=== PATIENT | male | born 1935 | race African-American/Black ===

== ENCOUNTER 2016-06-04 23:50 | Inpatient (IN) | payer MEDICARE, BC ==
--- NOTE | ~2016-06-04 | DS ---
Discharge Summary [facility] [address] [place]. [address] NAME: LEYLA MADSEN : 33 STATUS : DIS IN PAT#: [id number] AGE: 80 ADM/REG DATE : 06/06/16 MR#: [id number] REPORT SERV DATE: 06/10/16 DICTATED BY: DATE: REPORT STATUS : Draft TRANSCRIBED BY: MODL DATE: 06/09/16 ADMISSION DATE: 06/06/2016 DISCHARGE DATE: 06/09/2016 DISCHARGE DIAGNOSES: 1. Bright red blood per rectum. 2. Hypertension. 3. Acute diverticulitis. 4. Diverticulosis. 5. History of Coumadin. 6. History of DVT. 7. Hypokalemia. 8. Nausea and vomiting. 9. Gastroesophageal reflux disease. 10.History of CVA. 11.Constipation. CONSULTATIONS: ELLI, Jared Oakley, DORIS with [employer]. PROCEDURES AND IMAGIN. 06/05/2016, CT of the abdomen and pelvis with contrast showed acute diverticulitis of the descending colon, sigmoid colon junction. No suspicious fluid collection and no free air. Benign 1 cm cyst involving left kidney. 2. 06/05/2016, venous Doppler bilateral lower extremities showed no significant evidence of deep vein thrombosis in either leg. HOSPITAL COURSE: This is an 80-year-old black male, who presents to the emergency room with bright red blood per rectum. Please see admission note by Dr. Juan Jose Wren on 06/05/2016. The patient was having history of diarrhea for which he takes Ex-Lax and Citrucel at home and alternates with Imodium to stop the diarrhea that he induces. The patient was seen by GI on 06/05/2016, and the patient was placed on a clear liquid diet, a proton pump inhibitor, antibiotics, and no scopes were being done unless there is acute drop in H and H due to Coumadin anticoagulation. During his stay, the patient has had several episodes of light red blood per rectum when he wipes and occasional squatting with stool, but it has not affected his H and H. His H and H has continued to remain in the 11.0 to 11.8. The patient's INR currently after being off Coumadin for four days is 1.4. The patient has had some persistent hypokalemia due to his diuretics and his p.o. potassium home dose is now being increased from 20 to 30. The patient has history of hypertension, which has remained stable for the last two days. The patient was having episodes of blood pressure in 180s over 100s. The patient did receive Flagyl per IV x3 days and this caused a persistent headache and continual nausea. The patient also received Levaquin 750 mg x4 days and is being discharged home with Keflex 500 mg four times a day for five days and Florastor twice daily for 10 days. The patient is also being discharged with Cardizem CD 180 mg daily, for the hypertension that he has been exhibiting during his stay. The patient did have a bilateral lower extremity venous Doppler that was negative and this will be sent with the patient to take to Dr. Reed. The patient has been having some episodes of constipation Discharge Summary [address] [place]. [address] NAME: LEYLA MADSEN : 33 STATUS : DIS IN PAT#: [id number] AGE: 80 ADM/REG DATE : 06/06/16 MR#: [id number] REPORT SERV DATE: 06/10/16 DICTATED BY: DATE: REPORT STATUS : Draft TRANSCRIBED BY: MODL DATE: 06/09/16 which are now resolved and has no residual affects of his CVA. PHYSICAL EXAMINATION: VITAL SIGNS: Blood pressure 141/72, respirations 18, O2 saturation is 94% on room, temperature is 98, heart rate is 77. HEENT: Head is atraumatic, normocephalic. Pupils are equal, round, reactive to light. Sclerae are clear and nonicteric. NECK: Supple with no obvious thyromegaly or lymphadenopathy. Neck veins are flat. CARDIAC: The patient is in a regular rhythm. LUNGS: Clear to auscultation with normal respiratory effort. GI: Abdomen is soft, and nontender with active bowel sounds in all four quadrants. Normal bowel habitus. No palpable organomegaly. EXTREMITIES: The patient has right greater than left lower extremity, nonpitting edema to the knees. The patient has normal distal pulses and denies calf tenderness. MUSCULOSKELETAL: The patient moves all extremities x4. He is ambulatory without assistance. SKIN: Skin is warm and dry and intact with normal color and turgor. NEUROPSYCH: The patient is alert and orient x4, pleasant, cooperative. Cranial nerves 2 through 12 are grossly intact. DISCHARGE MEDICATIONS: Cardizem 180 mg p.o. daily, Lasix 40 mg twice daily, Metoprolol-XL 100 mg daily, in the morning and 50 mg at bedtime, Nexium 20 mg daily, MiraLAX daily, potassium 30 mEq daily, Citrucel daily, Florastor 1 capsule twice daily, Timoptic 1 drop in left eye twice daily, Artificial Tears as needed in both eyes daily, Coumadin 6 mg daily. This will be held until patient is seen by Dr. Reed and will be resumed approximately on 06/11 or 06/12. ALLERGIES: THE PATIENT IS ALLERGIC TO PENICILLIN AND ATORVASTATIN. DISCHARGE INSTRUCTIONS: The patient is to follow up with his PCP, Dr. Reed in two weeks for assessment of his Coumadin. The patient also is to follow up with Dr. Maddox in the next 1-2 days for evaluation of his bright red blood per rectum. Approximately, 30 minutes has been spent coordinating discharge care of this patient including [id number] encounter and summarization of the discharge. BENITA/JAY Arielle Krishna NP / [id number] CC: Zohaib Mckeon MD Discharge Summary [address] [address] NAME: LEYLA MADSEN : 33 STATUS : DIS IN PAT#: [id number] AGE: 80 ADM/REG DATE : 06/06/16 MR#: [id number] REPORT SERV DATE: 06/10/16 DICTATED BY: DATE: REPORT STATUS : Draft TRANSCRIBED BY: MODL DATE: 06/09/16 Marlon Reed M.D.
--- NOTE | ~2016-06-04 | HP ---
History And Physical [place] [address] [facility] [place]. [address] NAME: LEYLA MADSEN : 33 STATUS : ADM Ludmila PAT#: [id number] AGE: 80 ADM/REG DATE : 06/04/16 MR#: [id number] REPORT SERV DATE: 06/05/16 DICTATED BY: JUAN JOSE PUENTE DATE: 06/05/16 REPORT STATUS : Draft TRANSCRIBED BY: MODL DATE: 06/05/16 DATE OF ADMISSION: 06/04/2016 CHIEF COMPLAINT: Passing bright red blood per rectum. HISTORY OF PRESENT ILLNESS: This is an 80-year-old male who presents to the emergency room at [facility] with the above-mentioned complaint. History is obtained from the patient, his who is at bedside, and reviewing data available on the [employer] system. According to Mr. Madsen, he was in his usual state of health until about three days ago when he started having diarrhea. About a day ago, he then noticed some minimal amounts of blood in the stool as well. Today, however, he had to go again and this time, there was bright red blood when he wiped. He looked in the toilet and there was a lot of bright red blood. He also had some blood dripping as well and the patient was very concerned. He had been told by his primary care physician to go to the emergency room right away if he ever saw blood like this as he was on warfarin for DVT and has been on it for 17 years now. According to him, he has had only 1 episode of deep venous thrombosis in his legs. In the emergency room, indeed he had bright red blood per rectum. A CT scan of his abdomen and pelvis showed sigmoid diverticulosis with mild diverticulitis. Hospitalist Service is asked to admit him for further evaluation and treatment. At the time of my evaluation, he denied any chest pain or palpitations. He had no orthopnea. He had no cough, hemoptysis, night sweats, or weight loss. He denied any falls or loss of consciousness, but has started feeling dizzy this afternoon. He denied any nausea or vomiting. Denied any hematemesis or hematuria. No other history of recent travel or exposures other than those mentioned above. PAST MEDICAL HISTORY: Significant for history of DVT 17 years ago, which was 1 episode and he is currently still on warfarin. He has a history of hiatal hernia, essential hypertension, gastroesophageal reflux disease, prostate cancer, and osteoarthritis. He also has a history of CVA and congestive heart failure. SOCIAL HISTORY: He has about 50 pack year history of smoking, but has not smoked in about 15 or so years. He denied alcohol use or recreational drug use. He used to be a community development worker. FAMILY HISTORY: Noncontributory. MEDICATIONS AT HOME: Reviewed by me in the chart today and reordered by me. REVIEW OF SYSTEMS: As in history of present illness. All other systems were reviewed in detail and quite unremarkable. History And Physical [address] [place]. [address] NAME: LEYLA MADSEN : 33 STATUS : ADM Ludmila PAT#: [id number] AGE: 80 ADM/REG DATE : 06/04/16 MR#: [id number] REPORT SERV DATE: 06/05/16 DICTATED BY: JUAN JOSE PUENTE DATE: 06/05/16 REPORT STATUS : Draft TRANSCRIBED BY: JAY DATE: 06/05/16 PHYSICAL EXAMINATION: GENERAL: This is a pleasant 80-year-old, not in any acute distress. HEENT: His head is atraumatic, normocephalic. He is alert, awake, oriented to time, place, and person. His pupils are equal, reacting to light, and accommodating. External ocular muscles are intact. Membranes are moist and pink. Sclerae are nonicteric. NECK: Supple with no jugular venous distention, lymphadenopathy, or thyromegaly. LUNGS: Clear to auscultation with no wheezes, rubs, or crackles. HEART: Heart sounds are regular with no murmurs, rubs, or gallops. ABDOMEN: Soft, nontender. Bowel sounds are present. EXTREMITIES: Showed no cyanosis, clubbing, or edema. NEUROLOGIC: Grossly intact with no focal, sensory, or motor deficits. Higher functions appeared intact. VITAL SIGNS: His vital signs today showed a temperature of 97.8, pulse 82, respirations 19 a minute, blood pressure was 142/70, and oxygen saturations are 96%, breathing on room air. LABORATORY DATA: Reviewed on the [employer] system showed a normal CMP with a blood glucose of 123. CBC showed a normal white blood cell count of 8000. Normal hemoglobin, hematocrit, and platelet count. His hemoglobin was 13.9 with a hematocrit of 40.5. Platelet count was 210,000. His prothrombin time was 21.4 today with an INR of 1.9. Urinalysis was not performed today. Films of the CT scan of his abdomen and pelvis were reviewed by me on the PACT today and interpreted by me. Official Radiology comments were also reviewed. There is sigmoid diverticulosis with very mild diverticulitis. A 12-lead EKG done in the emergency room was reviewed and interpreted by me. There is normal sinus rhythm at a rate of [address]-T changes. IMPRESSION: 1. Acute gastrointestinal bleeding. 2. Acute diverticulitis. 3. Essential hypertension. 4. History of deep venous thrombosis, on warfarin. 5. Hiatal hernia. 6. Gastroesophageal reflux disease. 7. History of prostate cancer. 8. Osteoarthritis. 9. History of cerebrovascular accident. 10.Congestive heart failure. PLAN: We will admit Mr. Madsen to the Hospitalist Service with telemetry for close monitoring. We will type cross, follow serial hemoglobin, hematocrit levels, and transfuse if necessary. We will go ahead and consult Dr. Maddox for Gastroenterology evaluation and recommendations. We will keep him n.p.o. at this time. We will also start him on levofloxacin and Flagyl intravenously as well. We will once again hold his warfarin given some vitamin K x1 now and repeat his PT/INR in the morning. We will continue all other medications and treatments at this time. Check his chemistry, CBC in the morning as well. He will be on SCDs for DVT prophylaxis while he is here. I have discussed the above plans with the patient and his . Questions were answered and they are agreeable to the above recommendations. History And Physical [address] [address] NAME: LEYLA MADSEN : 33 STATUS : ADM Ludmila PAT#: [id number] AGE: 80 ADM/REG DATE : 06/04/16 MR#: [id number] REPORT SERV DATE: 06/05/16 DICTATED BY: JUAN JOSE PUENTE DATE: 06/05/16 REPORT STATUS : Draft TRANSCRIBED BY: JAY DATE: 06/05/16 Hospitalist Service will be following him during his stay here. /JAY Juan Jose Puente M.D. / [id number] CC: MD Marlon Nava M.D.
--- NOTE | ~2016-06-04 | CN ---
Consultation Report [facility] [address] [place]. [address] NAME: DANE MADSEN : 33 STATUS : ADM Ludmila PAT#: [id number] AGE: 80 ADM/REG DATE : 06/04/16 MR#: [id number] REPORT SERV DATE: 06/05/16 DICTATED BY: RAFI CAMEJO DATE: 06/05/16 REPORT STATUS : Draft TRANSCRIBED BY: MODL DATE: 06/05/16 GI CONSULTATION DATE OF CONSULTATION: 06/05/2016 REQUESTING PHYSICIAN: Dr. Wren. REASON FOR CONSULTATION: Evaluation and management of bright red blood per rectum and diverticulitis. HISTORY OF PRESENT ILLNESS: Mr. Dane Madsen is a very pleasant 80-year-old, male patient, known to Dr. Cory Maddox in the outpatient setting, who presented to [facility]04[facility]2016 with a chief complaint of bright red blood per rectum and abdominal discomfort. The patient gives a history of symptom onset two and a half days ago. He initially had diarrhea, noticed a very small amount of blood over the past two days; however, yesterday afternoon, he had a large amount of bright red blood as well as some small blood clots in the toilet. This was concerning to him as he is on Coumadin. He came into the hospital for further evaluation. He had a hemoglobin on admission of 13.9 and a white blood cell count of 8.0. He had a CT with contrast showing acute diverticulitis of the descending and sigmoid colon. He has not passed any more blood per rectum since coming in. He denies any true abdominal pain, but notes some discomfort in the left lower quadrant as well as the epigastric region. He has not had any nausea or vomiting. He denies any sick contacts. He has not had chest pain or shortness of breath. No melena has been observed. His last EGD and colonoscopy with Dr. Maddox was in 04/2013. His colonoscopy showed rectal polyps and internal hemorrhoids. He also had ascending colon and sigmoid colon diverticulosis. His EGD was a normal exam. The patient presently states that he is feeling well. I have discussed with him that we will start him on a clear liquid diet. We will monitor his H and H and treat him with IV antibiotics. If his hemoglobin drops and/or he continues to pass large volumes of bright red blood, then we will entertain the idea of colonoscopy. If not, we will treat him conservatively and he can follow with Dr. Maddox as an outpatient to discuss if/when a followup colonoscopy is needed. He is agreeable with this plan. PAST MEDICAL HISTORY: Positive for diverticulosis, colon polyps, GERD, DVT, on Coumadin, hiatal hernia, hypertension, prostate cancer, osteoarthritis, CVA, and CHF. SOCIAL HISTORY: He is . He lives independently. Past history of tobacco, cessation for 15 years. Denies alcohol or illicit drugs. FAMILY HISTORY: Noncontributory from a GI standpoint. ALLERGIES: PENICILLIN AND LIPITOR. HOME MEDICATIONS: ProAir, Artificial Tears, Zyrtec, Nexium, Lasix, Toprol, potassium, Consultation Report [address] [place]. [address] NAME: DANE MADSEN : 33 STATUS : ADM Ludmila PAT#: [id number] AGE: 80 ADM/REG DATE : 06/04/16 MR#: [id number] REPORT SERV DATE: 06/05/16 DICTATED BY: RAFI CAMEJO DATE: 06/05/16 REPORT STATUS : Draft TRANSCRIBED BY: JAY DATE: 06/05/16 timolol, and Coumadin. REVIEW OF SYSTEMS: A 10-point review of systems has been obtained with pertinent positives being addressed in the history of present illness. PHYSICAL EXAMINATION: VITAL SIGNS: Temperature 97.8, pulse 74, respirations 16, blood pressure 152/70. NEURO: Reveals an alert, male, resting in bed with no focal deficits. GENERAL: Cooperative, in no apparent distress. Awake, alert, and oriented x3. HEAD, EARS, EYES, NOSE, AND THROAT: Anicteric. Pupils equal, round, reactive to light and accommodation. Normocephalic and atraumatic. NECK: No JVD. No palpable nodes. LUNGS: Diminished in the bases. Clear in the upper lobes. Normal respiratory effort exhibited. Equal expansion. CARDIOVASCULAR SYSTEM: Regular rate and rhythm. ABDOMEN: Soft, round and obese with mild epigastric and left lower quadrant tenderness to palpation. Active bowel sounds. No organomegaly appreciated. EXTREMITIES: No edema. Normal distal pulses. SKIN: Warm, dry, and intact. PERTINENT LABORATORY DATA: Sodium is 142, potassium is 3.9, BUN is 11, creatinine 0.83. White count 8, hemoglobin 13.9, hematocrit 40.5, and platelet count 210. INR of 1.9. CT with contrast showed acute diverticulitis at the descending and sigmoid colon. ASSESSMENT: 1. Acute diverticulitis of the descending and sigmoid colon. 2. Bright red blood per rectum, most likely diverticular bleeding. 3. History of deep vein thrombosis; Coumadin which presently is being held. PLAN: 1. Clear liquid diet. 2. PPI. 3. Continue antibiotic coverage. 4. Stool studies. 5. Monitor H and H. 6. We will hold all scopes at this time unless acute drop in H and H and/or continued large volume GI bleeding. We will follow. BILL/JAY Rafi Consultation Report [address] [place]. [address] NAME: DANE MADSEN : 33 STATUS : ADM Ludmila PAT#: [id number] AGE: 80 ADM/REG DATE : 06/04/16 MR#: [id number] REPORT SERV DATE: 06/05/16 DICTATED BY: RAFI CAMEJO DATE: 06/05/16 REPORT STATUS : Draft TRANSCRIBED BY: JAY DATE: 06/05/16 DORIS Oakley / [id number] CC: MD Marlon Nava M.D.
[~2016-06-04 23:50] MED LIST: ASTEPRO0.15 % NAS; COUMADIN6 MG PO; HEMOCYTET PO; JANTOVEN6 MG PO; KDUR10 PO; KLOR-CON 1010 MEQ PO; LOP50 PO; LOVENOX1C SC; LOZOLTAB PO; NEXIUM20 M1 PO; NEXIUM40 PO; PRILOSEC OTC PO; TIMOLOL MAL0.5 % OPH; TOPXL100 PO; TOPXL50 PO; TRAVATAN Z0.004 % OPH; XALAT OPH; ZYRTEC ALLGY10 MG PO
[2016-06-05 01:32] LABS: BASOPHILS 0.1 %; BASOPHILS ABSOLUTE 0.01 10/3/uL (0.0-0.16); EOSINOPHILS 1.6 %; EOSINOPHILS ABSOLUTE 0.13 10/3/uL (0.0-0.53); ER CBC TAT 0 Hrs 10 Mins; HEMATOCRIT 40.5 % (40.0-51.0); HEMOGLOBIN 13.9 g/dL (13.6-17.8); IMMATURE GRANULOCYTES 0.2 %; IMMATURE GRANULOCYTES ABSOLUTE 0.02 10/3/uL (0.0-0.11); LYMPHOCYTES 17.2 %; LYMPHOCYTES ABSOLUTE 1.38 10/3/uL (0.67-4.30); MEAN CORPUS HGB CONC 34.3 g/dL (32.0-36.0); MEAN CORPUSCULAR HEMOGLOB 31.4 pg (26.0-34.0); MEAN CORPUSCULAR VOLUME 91.4 fL (80-100); MEAN PLATELET VOLUME 10.7 fL (9.2-13.0); MONOCYTES 11.4 %; MONOCYTES ABSOLUTE 0.92 10/3/uL (0.21-1.20); NEUTROPHILS 69.5 %; NEUTROPHILS ABSOLUTE 5.58 10/3/uL (2.02-8.40); PLATELET COUNT 210 10/3/uL (150-400); RBC DISTRIBUTION WIDTH 14.2 % (12.0-16.0); RED CELL COUNT 4.43 10/6/uL (4.7-6.1)
[2016-06-05 01:33] LABS: MANUAL DIFF NO %
[2016-06-05 01:39] LABS: INTERNATIONAL NORMAL RATI 1.9 UNITS (-); PARTIAL THROMBO TIME 34.7 SEC (22.5-37.2); PROTIME (NOT ORD) 21.4 SEC (12.0-14.5)
[2016-06-05 01:55] LABS: A/G RATIO 0.8 (0.7-1.9); ALBUMIN 3.5 G/DL (3.5-5.0); ALKALINE PHOSPHATASE 95 U/L (45-117); BUN (BLOOD UREA NITROGEN) 11 MG/DL (6-23); CALCIUM, SERUM 8.6 MG/DL (8.5-10.4); CHLORIDE, SERUM 107 MMOL/L (96-112); CO2 (CARBON DIOXIDE) 25 MMOL/L (24-34); CREATININE 0.83 MG/DL (0.70-1.30); GFR AFRICAN AMERICAN 95 ML/MIN (>=60); GFR NON AFRICAN AMERICAN 82 ML/MIN (>=60); GLOBULIN 4.5 G/DL (2.5-4.1); SGPT(ALT) 25 U/L (5-65); SODIUM, SERUM 142 MMOL/L (135-148); TOTAL BILIRUBIN 0.7 MG/DL (0-1.2)
[2016-06-05 01:56] LABS: GLUCOSE, SERUM 123 MG/DL (60-99); POTASSIUM, SERUM 3.9 MMOL/L (3.5-5.3); SGOT(AST) 25 U/L (5-40)
[2016-06-05] MEDS ORDERED: L40 PO (02:45)
[2016-06-05] MEDS ORDERED: COUMADIN6 MG PO (02:48)
[2016-06-05] MEDS ORDERED: TOPXL50 PO (02:49)
[2016-06-05] MEDS ORDERED: TOPXL100 PO (02:49)
[2016-06-05] MEDS ORDERED: KDUR10 PO (02:49)
[2016-06-05] MEDS ORDERED: TEARS PURE OPH (02:49)
[2016-06-05] MEDS ORDERED: PROAIR HFA INH (02:50)
[2016-06-05] MEDS ORDERED: TIMOLOL MAL0.5 % OPH ×2 (02:50)
[2016-06-05] MEDS ORDERED: ZYRTEC ALLGY10 MG PO (02:50)
[2016-06-05] MEDS ORDERED: NEXIUM20 M1 PO (02:53)
[2016-06-05 10:10] LABS: BASOPHILS 0.2 %; BASOPHILS ABSOLUTE 0.01 10/3/uL (0.0-0.16); EOSINOPHILS 2.1 %; EOSINOPHILS ABSOLUTE 0.12 10/3/uL (0.0-0.53); HEMOGLOBIN 11.8 g/dL (13.6-17.8); LYMPHOCYTES 20.9 %; LYMPHOCYTES ABSOLUTE 1.21 10/3/uL (0.67-4.30); MEAN CORPUS HGB CONC 33.1 g/dL (32.0-36.0); MEAN CORPUSCULAR HEMOGLOB 30.7 pg (26.0-34.0); MEAN PLATELET VOLUME 10.6 fL (9.2-13.0); MONOCYTES 13.3 %; MONOCYTES ABSOLUTE 0.77 10/3/uL (0.21-1.20); NEUTROPHILS 63.5 %; NEUTROPHILS ABSOLUTE 3.68 10/3/uL (2.02-8.40); PLATELET COUNT 166 10/3/uL (150-400); RBC DISTRIBUTION WIDTH 14.7 % (12.0-16.0); RED CELL COUNT 3.84 10/6/uL (4.7-6.1); WHITE BLOOD CELLS 5.8 10/3/uL (4.5-10.5)
[2016-06-05 10:16] LABS: HEMATOCRIT 35.7 % (40.0-51.0); MANUAL DIFF NO %
[2016-06-05 10:20] LABS: BUN (BLOOD UREA NITROGEN) 9 MG/DL (6-23); CALCIUM, SERUM 8.4 MG/DL (8.5-10.4); CHLORIDE, SERUM 109 MMOL/L (96-112); CO2 (CARBON DIOXIDE) 26 MMOL/L (24-34); CREATININE 0.75 MG/DL (0.70-1.30); GFR AFRICAN AMERICAN 99 ML/MIN (>=60); GFR NON AFRICAN AMERICAN 85 ML/MIN (>=60); GLUCOSE, SERUM 121 MG/DL (60-99); INTERNATIONAL NORMAL RATI 1.8 UNITS (-); PHOSPHORUS, SERUM 3.1 MG/DL (2.5-4.5); POTASSIUM, SERUM 3.8 MMOL/L (3.5-5.3); PROTIME (NOT ORD) 20.9 SEC (12.0-14.5); SODIUM, SERUM 143 MMOL/L (135-148)
[2016-06-05 16:34] LABS: HEMATOCRIT 35.6 % (40.0-51.0); HEMOGLOBIN 11.5 g/dL (13.6-17.8)
[2016-06-05 22:20] LABS: HEMATOCRIT 36.6 % (40.0-51.0); HEMOGLOBIN 11.9 g/dL (13.6-17.8)
[2016-06-06 06:57] LABS: BASOPHILS 0.2 %; BASOPHILS ABSOLUTE 0.01 10/3/uL (0.0-0.16); EOSINOPHILS 2.7 %; EOSINOPHILS ABSOLUTE 0.14 10/3/uL (0.0-0.53); HEMATOCRIT 34.4 % (40.0-51.0); HEMOGLOBIN 11.4 g/dL (13.6-17.8); IMMATURE GRANULOCYTES 0.2 %; IMMATURE GRANULOCYTES ABSOLUTE 0.01 10/3/uL (0.0-0.11); LYMPHOCYTES 21.6 %; MEAN CORPUS HGB CONC 33.1 g/dL (32.0-36.0); MEAN CORPUSCULAR HEMOGLOB 30.6 pg (26.0-34.0); MEAN CORPUSCULAR VOLUME 92.5 fL (80-100); MEAN PLATELET VOLUME 10.5 fL (9.2-13.0); MONOCYTES 7.8 %; NEUTROPHILS 67.5 %; NEUTROPHILS ABSOLUTE 3.44 10/3/uL (2.02-8.40); PLATELET COUNT 159 10/3/uL (150-400); RBC DISTRIBUTION WIDTH 14.2 % (12.0-16.0); RED CELL COUNT 3.72 10/6/uL (4.7-6.1); WHITE BLOOD CELLS 5.1 10/3/uL (4.5-10.5)
[2016-06-06 07:05] LABS: INTERNATIONAL NORMAL RATI 1.4 UNITS (-); MANUAL DIFF NO %
[2016-06-06 07:07] LABS: PROTIME (NOT ORD) 16.9 SEC (12.0-14.5)
[2016-06-06 07:08] LABS: BUN (BLOOD UREA NITROGEN) 9 MG/DL (6-23); CALCIUM, SERUM 8.3 MG/DL (8.5-10.4); CHLORIDE, SERUM 108 MMOL/L (96-112); CO2 (CARBON DIOXIDE) 25 MMOL/L (24-34); CREATININE 0.78 MG/DL (0.70-1.30); GFR AFRICAN AMERICAN 97 ML/MIN (>=60); GFR NON AFRICAN AMERICAN 84 ML/MIN (>=60); GLUCOSE, SERUM 125 MG/DL (60-99); POTASSIUM, SERUM 3.5 MMOL/L (3.5-5.3); SODIUM, SERUM 143 MMOL/L (135-148)
[2016-06-07 07:02] LABS: BASOPHILS 0.2 %; BASOPHILS ABSOLUTE 0.01 10/3/uL (0.0-0.16); EOSINOPHILS 2.5 %; EOSINOPHILS ABSOLUTE 0.13 10/3/uL (0.0-0.53); HEMATOCRIT 34.5 % (40.0-51.0); HEMOGLOBIN 11.5 g/dL (13.6-17.8); IMMATURE GRANULOCYTES 0.4 %; IMMATURE GRANULOCYTES ABSOLUTE 0.02 10/3/uL (0.0-0.11); LYMPHOCYTES 24.7 %; LYMPHOCYTES ABSOLUTE 1.28 10/3/uL (0.67-4.30); MEAN CORPUS HGB CONC 33.3 g/dL (32.0-36.0); MEAN CORPUSCULAR HEMOGLOB 30.6 pg (26.0-34.0); MEAN CORPUSCULAR VOLUME 91.8 fL (80-100); MEAN PLATELET VOLUME 10.8 fL (9.2-13.0); MONOCYTES 9.1 %; MONOCYTES ABSOLUTE 0.47 10/3/uL (0.21-1.20); NEUTROPHILS 63.1 %; NEUTROPHILS ABSOLUTE 3.27 10/3/uL (2.02-8.40); PLATELET COUNT 172 10/3/uL (150-400); RED CELL COUNT 3.76 10/6/uL (4.7-6.1); WHITE BLOOD CELLS 5.2 10/3/uL (4.5-10.5)
[2016-06-07 07:03] LABS: MANUAL DIFF NO %
[2016-06-07 07:15] LABS: BUN (BLOOD UREA NITROGEN) 9 MG/DL (6-23); CALCIUM, SERUM 8.3 MG/DL (8.5-10.4); CHLORIDE, SERUM 108 MMOL/L (96-112); CO2 (CARBON DIOXIDE) 25 MMOL/L (24-34); GFR AFRICAN AMERICAN 96 ML/MIN (>=60); GFR NON AFRICAN AMERICAN 83 ML/MIN (>=60); GLUCOSE, SERUM 129 MG/DL (60-99); POTASSIUM, SERUM 3.4 MMOL/L (3.5-5.3); SODIUM, SERUM 143 MMOL/L (135-148)
[2016-06-08 07:14] LABS: BASOPHILS 0.3 %; BASOPHILS ABSOLUTE 0.02 10/3/uL (0.0-0.16); EOSINOPHILS 2.6 %; EOSINOPHILS ABSOLUTE 0.16 10/3/uL (0.0-0.53); HEMATOCRIT 33.5 % (40.0-51.0); HEMOGLOBIN 11.4 g/dL (13.6-17.8); IMMATURE GRANULOCYTES 0.2 %; IMMATURE GRANULOCYTES ABSOLUTE 0.01 10/3/uL (0.0-0.11); LYMPHOCYTES 26.2 %; MEAN CORPUSCULAR HEMOGLOB 30.9 pg (26.0-34.0); MEAN CORPUSCULAR VOLUME 90.8 fL (80-100); MEAN PLATELET VOLUME 10.5 fL (9.2-13.0); MONOCYTES 8.9 %; MONOCYTES ABSOLUTE 0.54 10/3/uL (0.21-1.20); NEUTROPHILS 61.8 %; NEUTROPHILS ABSOLUTE 3.77 10/3/uL (2.02-8.40); PLATELET COUNT 178 10/3/uL (150-400); RBC DISTRIBUTION WIDTH 13.9 % (12.0-16.0); RED CELL COUNT 3.69 10/6/uL (4.7-6.1); WHITE BLOOD CELLS 6.1 10/3/uL (4.5-10.5)
[2016-06-08 07:18] LABS: MANUAL DIFF NO %
[2016-06-08 07:20] LABS: BUN (BLOOD UREA NITROGEN) 9 MG/DL (6-23); CALCIUM, SERUM 8.6 MG/DL (8.5-10.4); CHLORIDE, SERUM 105 MMOL/L (96-112); CO2 (CARBON DIOXIDE) 23 MMOL/L (24-34); CREATININE 0.68 MG/DL (0.70-1.30); GFR AFRICAN AMERICAN 103 ML/MIN (>=60); GFR NON AFRICAN AMERICAN 89 ML/MIN (>=60); GLUCOSE, SERUM 112 MG/DL (60-99); POTASSIUM, SERUM 3.3 MMOL/L (3.5-5.3); SODIUM, SERUM 140 MMOL/L (135-148)
[2016-06-08 07:26] LABS: INTERNATIONAL NORMAL RATI 1.4 UNITS (-); PROTIME (NOT ORD) 16.7 SEC (12.0-14.5)
[2016-06-09 05:38] LABS: BASOPHILS 0.5 %; BASOPHILS ABSOLUTE 0.03 10/3/uL (0.0-0.16); EOSINOPHILS 2.6 %; EOSINOPHILS ABSOLUTE 0.16 10/3/uL (0.0-0.53); HEMATOCRIT 35.5 % (40.0-51.0); HEMOGLOBIN 11.8 g/dL (13.6-17.8); IMMATURE GRANULOCYTES 0.2 %; IMMATURE GRANULOCYTES ABSOLUTE 0.01 10/3/uL (0.0-0.11); LYMPHOCYTES 25.4 %; LYMPHOCYTES ABSOLUTE 1.55 10/3/uL (0.67-4.30); MEAN CORPUS HGB CONC 33.2 g/dL (32.0-36.0); MEAN CORPUSCULAR HEMOGLOB 30.6 pg (26.0-34.0); MEAN CORPUSCULAR VOLUME 92.2 fL (80-100); MEAN PLATELET VOLUME 10.3 fL (9.2-13.0); MONOCYTES 13.3 %; MONOCYTES ABSOLUTE 0.81 10/3/uL (0.21-1.20); NEUTROPHILS ABSOLUTE 3.54 10/3/uL (2.02-8.40); PLATELET COUNT 182 10/3/uL (150-400); RBC DISTRIBUTION WIDTH 14.6 % (12.0-16.0); RED CELL COUNT 3.85 10/6/uL (4.7-6.1); WHITE BLOOD CELLS 6.1 10/3/uL (4.5-10.5)
[2016-06-09 05:42] LABS: MANUAL DIFF NO %
[2016-06-09 05:50] LABS: BUN (BLOOD UREA NITROGEN) 11 MG/DL (6-23); CALCIUM, SERUM 8.6 MG/DL (8.5-10.4); CHLORIDE, SERUM 105 MMOL/L (96-112); CO2 (CARBON DIOXIDE) 27 MMOL/L (24-34); CREATININE 0.81 MG/DL (0.70-1.30); GFR AFRICAN AMERICAN 96 ML/MIN (>=60); GFR NON AFRICAN AMERICAN 83 ML/MIN (>=60); GLUCOSE, SERUM 119 MG/DL (60-99); SODIUM, SERUM 141 MMOL/L (135-148)
[2016-06-09 05:57] LABS: POTASSIUM, SERUM 4.1 MMOL/L (3.5-5.3)
[2016-06-09] MEDS ORDERED: K500 PO (10:25)
[2016-06-09] MEDS ORDERED: FLORASTOR250 MG PO (10:26)
[2016-06-09] MEDS ORDERED: CARDCD180 PO (10:27)
[2016-06-09] MEDS ORDERED: MIRALAX POWDER1 PKT PO (10:28)
[2016-06-09] MEDS ORDERED: CITRACAL (10:29)
[2016-07-30] MEDS ORDERED: KDUR10 PO (14:18)
== END 2016-06-09 12:50 | disposition home or self-care (01) | DRG 379 ==
LOC: ER 23:50 → 2SO 23:59
PROVIDERS: Emergency Medicine; Hospitalist; Internal Medicine Pulmonary Disease; Nurse Practitioner Family
DX: K57.33 Diverticulitis of large intestine without perforation or abscess with bleeding (principal); I10 Essential (primary) hypertension; K21.9 Gastro-esophageal reflux disease without esophagitis; K44.9 Diaphragmatic hernia without obstruction or gangrene; M19.90 Unspecified osteoarthritis, unspecified site; E87.6 Hypokalemia; K57.90 Diverticulosis of intestine, part unspecified, without perforation or abscess without bleeding; K59.00 Constipation, unspecified; Z86.718 Personal history of other venous thrombosis and embolism; Z79.01 Long term (current) use of anticoagulants; Z79.899 Other long term (current) drug therapy; Z85.46 Personal history of malignant neoplasm of prostate; Z86.73 Personal history of transient ischemic attack (TIA), and cerebral infarction without residual deficits; Z87.891 Personal history of nicotine dependence; Z88.0 Allergy status to penicillin; Z88.8 Allergy status to other drugs, medicaments and biological substances
CPT/HCPCS: 36415; 74177; 80048; 80053; 83735; 84100; 85014; 85018; 85025; 85610; 85730; 86850; 86900; 86901; 93005; 93970; 96365; 96375; 99285; A9270-GY; C9113; J0360; J1956; J2405; J3430; Q9967

== ENCOUNTER 2016-08-01 09:44 | Day surgery (SDC) | payer MEDICARE, BC ==
--- NOTE | ~2016-08-01 | EGD ---
EGD REPORT [facility] [address] [address] NAME: DANE MADSEN : 31 STATUS : [facility] PAT#: [id number] AGE: 80 ADM/REG DATE : 08/01/16 MR#: [id number] REPORT SERV DATE: 08/01/16 DICTATED BY: ARTHUR MADDOX DATE: 08/01/16 REPORT STATUS : Draft TRANSCRIBED BY: [employer] DATE: 08/01/16 [facility] Patient Name: Dane Madsen Date of : 1935 Attending MD: ARTHUR MADDOX MD Procedure Date No Time: 08/01/2016 Procedure: Colonoscopy Indications: Hematochezia, Follow-up of diverticulitis, Last colonoscopy: April 2013 Medicines: See the Anesthesia note for documentation of the administered medications Complications: No immediate complications. Procedure: Pre-Anesthesia Assessment: - ASA Grade Assessment: III - A patient with severe systemic disease. After I obtained informed consent, the scope was passed under direct vision. Throughout the procedure, the patient's blood pressure, pulse, and oxygen saturations were monitored continuously. The CF [id number] was introduced through the anus and advanced to the terminal ileum, with identification of the appendiceal orifice and IC valve. The colonoscopy was performed without difficulty. The patient tolerated the procedure well. The quality of the bowel preparation was adequate. Findings: The perianal and digital rectal examinations were normal. Diverticula were found in the sigmoid colon and in the ascending colon. Internal hemorrhoids were found during retroflexion and were medium-sized. Two sessile polyps were found in the ascending colon. The polyps were small in size. These polyps were removed with a cold biopsy forceps. Resection and retrieval were complete. A sessile polyp was found in the descending colon. The polyp was small in size. The polyp was removed with a cold biopsy forceps. Resection and retrieval were complete. Distal rectal telangiectasias Impression: - Diverticulosis in the sigmoid colon and in the ascending colon. - Internal hemorrhoids. - Two small polyps in the ascending colon. Resected and retrieved. - One small polyp in the descending colon. Resected and retrieved. EGD REPORT [address] [address] NAME: DANE MADSEN : 31 STATUS : [facility] [place] PAT#: [id number] AGE: 80 ADM/REG DATE : 08/01/16 MR#: [id number] REPORT SERV DATE: 08/01/16 DICTATED BY: ARTHUR MADDOX DATE: 08/01/16 REPORT STATUS : Draft TRANSCRIBED BY: [employer] DATE: 08/01/16 - Distal rectal telangiectasias Recommendation: - Patient has a contact number available for emergencies. The signs and symptoms of potential delayed complications were discussed with the patient. Return to normal activities tomorrow. Written discharge instructions were provided to the patient. - Regular diet. - Continue present medications. - Restart coumadin today and get INR in one week by your physician - FOR YOUR BIOPSY RESULTS: Please go to [email or web address] and register to receive your results via the portal. Your biopsy results will be posted there in about 7 to 10 days. IF you do not see result in 10 days, call office. - Suggest you use [employer] - Repeat colonoscopy is not recommended for surveillance. Procedure Code(s): --- Professional --- 65537, Colonoscopy, flexible, proximal to splenic flexure; with biopsy, single or multiple Diagnosis Code(s): --- Professional --- K64.8, Other hemorrhoids K57.30, Diverticulosis of large intestine without perforation or abscess without bleeding D12.4, Benign neoplasm of descending colon D12.2, Benign neoplasm of ascending colon K92.1, Melena K57.32, Diverticulitis of large intestine without perforation or abscess without bleeding CPT copyright 2013 [employer]. All rights reserved. The codes documented in this report are preliminary and upon tobacco cutter review may be revised to meet current compliance requirements. Arthur Maddox MD ARTHUR MADDOX MD 08/01/2016 11:58 AM This report has been signed electronically. Number of Addenda: 0 Note Initiated On: 08/01/2016 10:52 AM EGD REPORT [facility] [address] [place] [address] NAME: DANE MADSEN : 31 STATUS : [facility] [place] PAT#: [id number] AGE: 80 ADM/REG DATE : 08/01/16 MR#: [id number] REPORT SERV DATE: 08/01/16 DICTATED BY: ARTHUR MADDOX DATE: 08/01/16 REPORT STATUS : Draft TRANSCRIBED BY: [employer] DATE: 08/01/16 Scope Withdrawal Time 0 hours 21 minutes 42 seconds [address] [place] [address]
[~2016-08-01 09:44] MED LIST changes: +CARDCD180 PO; +CITRACAL; +FLORASTOR250 MG PO; +K500 PO; +L40 PO; +MIRALAX POWDER1 PKT PO; +PROAIR HFA INH; +TEARS PURE OPH
== END 2016-08-01 23:59 | disposition home or self-care (01) ==
LOC: DMU 09:44
PROVIDERS: Internal Medicine Gastroenterology
PROC: 0DBM8ZX Excision of Descending Colon, Via Natural or Artificial Opening Endoscopic, Diagnostic (ICD-10-PCS; 2016-08-01)
PROC: 0DBK8ZX Excision of Ascending Colon, Via Natural or Artificial Opening Endoscopic, Diagnostic (ICD-10-PCS; principal; 2016-08-01 15:30)
DX: D12.4 Benign neoplasm of descending colon (principal); K63.5 Polyp of colon; I10 Essential (primary) hypertension; E11.9 Type 2 diabetes mellitus without complications; K21.9 Gastro-esophageal reflux disease without esophagitis; M19.90 Unspecified osteoarthritis, unspecified site; K64.8 Other hemorrhoids; K57.32 Diverticulitis of large intestine without perforation or abscess without bleeding; Z88.0 Allergy status to penicillin; Z88.8 Allergy status to other drugs, medicaments and biological substances
CPT/HCPCS: 82962; 88305